=== PATIENT | male | born 1970 | race Caucasian/White ===

== ENCOUNTER 2017-11-17 11:58 | Emergency (ER) | payer OTHER ==
--- NOTE | 2017-11-17 12:08 | EDM.PDOC ---
ED HPI GENERAL MEDICAL PROBLEM - General Stated Complaint: BACK PAIN Time Seen by Provider: 11/17/17 12:07 Source of Information: Reports: Patient - History of Present Illness INITIAL COMMENTS - FREE TEXT/NARRATIVE: HISTORY AND PHYSICAL: History of present illness: [Patient reports a back injury 3 days prior to arrival He was working on area oil location and pushing on a hailee handle and fell several times in developing 6 out of 10 low back pain radiating down the left lower extremity Patient has no foot drop he does have decreased sensation on the left inner thigh sensation is intact on the right he complains of being incontinent of a small amount of solid stool this morning No fever chills sweats] Review of systems: As per history of present illness and below otherwise all systems reviewed and negative. Past medical history: As per history of present illness and as reviewed below otherwise noncontributory. Surgical history: As per history of present illness and as reviewed below otherwise noncontributory. Social history: No reported history of drug or alcohol abuse. Family history: As per history of present illness and as reviewed below otherwise noncontributory. Physical exam: HEENT: Atraumatic, normocephalic, pupils reactive, negative for conjunctival pallor or scleral icterus, mucous membranes moist, throat clear, neck supple, nontender, trachea midline. Lungs: Clear to auscultation, breath sounds equal bilaterally, chest nontender. Heart: S1S2, regular, negative for clicks, rubs, or JVD. Abdomen: Soft, nondistended, nontender. Negative for masses or hepatosplenomegaly. Negative for costovertebral tenderness. Pelvis: Stable nontender. Genitourinary: Deferred. Rectal: Deferred. Extremities: Atraumatic, negative for cords or calf pain. Neurovascular unremarkable. Neuro: Awake, alert, oriented. Cranial nerves II through XII unremarkable. Cerebellum unremarkable. Motor and sensory unremarkable throughout. Exam nonfocal. Diagnostics: [MRI lumbar spine] Therapeutics: [Cataflam Flexeril ] Impression: [Low back pain ] Definitive disposition and diagnosis as appropriate pending reevaluation and review of above. Left Lower Back Pain Score (Numeric/FACES): 7 - Related Data Allergies Allergy/AdvReac Type Severity Reaction Status Date / Time No Known Allergies Allergy Verified 11/17/17 12:16 Home Meds: Home Meds . [No Known Home Meds] 11/17/17 [History] ED ROS GENERAL - Review of Systems Review Of Systems: See Below ED EXAM, GENERAL - Physical Exam Exam: See Below Course - Vital Signs Last Recorded V/S: Last Vital Signs Temp 97.9 F 11/17/17 12:12 Pulse 83 11/17/17 12:12 Resp BP 154/90 H 11/17/17 12:12 Pulse Ox 95 11/17/17 12:12 Departure - Departure Time of Disposition: 13:56 Disposition: Home, Self-Care 01 Condition: Good Clinical Impression: Low back pain - Discharge Information Additional Instructions: Medication as prescribed Return if symptoms persist or worsen Ice 20 minute intervals 3 times daily as needed Follow-up with primary care or occupational health in 2 week [facility] [address] [place] [address] The following information is given to patients seen in the emergency department who are being discharged to home. This information is to outline your options for follow-up care. We provide all patients seen in our emergency department with a follow-up referral. The need for follow-up, as well as the timing and circumstances, are variable depending upon the specifics of your emergency department visit. If you don't have a primary care physician on staff, we will provide you with a referral. We always advise you to contact your personal physician following an emergency department visit to inform them of the circumstance of the visit and for follow-up with them and/or the need for any referrals to a consulting specialist. The emergency department will also refer you to a specialist when appropriate. This referral assures that you have the opportunity for follow-up care with a specialist. All of these measure are taken in an effort to provide you with optimal care, which includes your follow-up. Under all circumstances we always encourage you to contact your private physician who remains a resource for coordinating your care. When calling for follow-up care, please make the office aware that this follow-up is from your recent emergency room visit. If for any reason you are refused follow-up, please contact the [facility] emergency department at and asked to speak to the emergency department charge nurse.
--- NOTE | 2017-11-17 13:45 | MR ---
EXAMINATION: MR lumbar spine HISTORY: Bilateral incontinence COMPARISON: None TECHNIQUE: Multiplanar multisequence imaging obtained through the lumbar spine without contrast. FINDINGS: The lumbar spinal alignment is grossly unremarkable. The vertebral body heights appear main tained. Small low signal area within the left ilium, likely a bone island. The SI joints are otherwis e symmetric. The distal spinal cord appears normal and the conus terminates at L1-L2. The visualized retroperitoneal structures are normal. T12-L1: Unremarkable. L1-L2: Unremarkable. L2-L3: Unremarkable. L3-L4: Small diffuse disc bulge asymmetric to the right without significant spinal canal stenosis. Mi ld to moderate right and minimal left neural foraminal stenosis. L4-L5: Small diffuse disc bulge, asymmetric to the right with an annular tear. No significant spinal canal stenosis. Mild bilateral neural foraminal stenosis. L5-S1: Unremarkable. IMPRESSION: 1. Degenerative disc disease noted at L3-L4 and L4-L5 with individual details above.
== END 2017-11-17 14:20 | disposition home or self-care (01) ==
LOC: MW.ED 11:58
DX: M54.5 Low back pain (principal)
CPT/HCPCS: 72148; 72148-26; 99283-25